=== PATIENT | female | born 1985 | race African-American/Black ===

== ENCOUNTER 2018-12-26 17:04 | Outpatient (CLI) | payer BC ==
[~2018-12-26 17:04] MED LIST: FERR240T9 PO; PREN-39 PO
--- NOTE | 2018-12-27 00:23 | PN ---
Triage Information Date/Time Late entry note for exam done for December 26, 2018 Reason for visit: Uterine contractions Weeks of Gestation 38 weeks and 5 days /Para 3 para 1 Diabetes: none Hypertention: none Additional information 33-year-old with IUP at 38 weeks and 5 days presented complaint nausea and and cramping, rule out labor. She denies any leaking of fluid, vaginal bleeding decreased movement. care with Dr. Jose Perez She denies any complication during her course Objective Heart Rate: 130's Heart Rate Comments Category 1. One episode of variable with rapid recovery noted, reassuring Results/Medications Imaging Results PROCEDURE: US OB biophysical profile. CLINICAL INDICATION: decreased movements, TECHNIQUE: Multiple sonographic images of the pelvis were obtained. The images were reviewed on a PACS workstation. COMPARISON: No prior studies are available for comparison. FINDINGS: There is a single live intrauterine gestation. Cardiac activity is present with 140 beats per minute. There is a vertex presentation. The placenta is fundal. There is no evidence of placental abruption. There is a normal amount of amniotic fluid with an HUGO = 13 cm. Biophysical profile: movement 2/2 tone 2/2. breathing 2/2 HUGO 2/2 Total 88 RPTAT: AA . IMPRESSION: Normal biophysical profile. . Disposition: Discharge Assessment/Plan IUP at 38 weeks and 5 days Cramping, nausea, rule out labor No evidence of labor. Cervical exam did not show any changes during observation of 4 5 hours testing overall reassuring Patient was given strict labor precautions and kick count Follow-up in triage tomorrow after 24 hours or sooner if she has any leaking of fluid increase cramps or any other concerns Adequate hydration discussed CHANI MCCLURE MD Dec 27, 2018 00:23
--- NOTE | 2018-12-27 06:12 | TRIAGE ---
OB Triage Datetime Report Generated by CPN: 12/27/2018 06:12 Datetime: 12/26/2018 23:00 Stage of : OB Triage Labor Evaluation Frequency: x5 in 1 hr Monitor Mode: External Duration (sec)2399: 50-120 Pattern: Normal: <= 5 Contractions in 10 Minutes Resting Tone [place]: Relaxed Heart Rate FHR Baseline Rate: 135 Monitor Mode: External US Variability: Moderate 6-25 bpm Accelerations: 15X15 Decelerations: None Category: Category I Datetime: 12/26/2018 22:00 Stage of : OB Triage Labor Evaluation Frequency: x8 in 1 hr Monitor Mode: External Duration (sec)2399: 50-120 Pattern: Normal: <= 5 Contractions in 10 Minutes Resting Tone [place]: Relaxed Heart Rate FHR Baseline Rate: 135 Monitor Mode: External US Variability: Moderate 6-25 bpm Accelerations: 15X15 Decelerations: None Category: Category I Datetime: 12/26/2018 20:14 Stage of : OB Triage Datetime: 12/26/2018 20:11 Vaginal Exam Dilatation (cms): 1.0 Effacement (%): 50 Station: -2 Exam By: Vazquez SCHMIDT Membrane Status: Intact Vaginal Bleeding: None Cervix, Consistency: Soft Cervix, Position: Midposition Datetime: 12/26/2018 20:00 Stage of : OB Triage Labor Evaluation Frequency: x7 in 1 hr Labor Evaluation Frequency: x12 in 1 hr Monitor Mode: External Duration (sec)2399: 50-120 Pattern: Normal: <= 5 Contractions in 10 Minutes Resting Tone [place]: Relaxed Heart Rate FHR Baseline Rate: 135 Heart Rate FHR Baseline Rate: 140 Monitor Mode: External US Variability: Moderate 6-25 bpm Accelerations: 15X15 Decelerations: None Category: Category I Datetime: 12/26/2018 19:15 Pain Assessment Pain Scale: 4 Pain Presence: Intermittent Pain Type: Pressure Pain Location: Abdomen Datetime: 12/26/2018 17:36 Stage of : OB Triage Datetime: 12/26/2018 17:29 Stage of : OB Triage Datetime: 12/26/2018 17:10 Stage of : OB Triage Assessment Type: Triage EGA: 38.5 Maternal Assessment Level of Consciousness: Fully Conscious DTR's/Clonus: DTRs 2+; No Clonus Headache: Denies Blurred Vision: No Respiratory Effort: Unlabored; Regular Rhythm; Equal Expansion Breath Sounds, Left: Clear and Equal Breath Sounds, Right: Clear and Equal Nausea/Vomiting: Denies RUQ Epigastric Pain: Denies Facial Edema: None Temperature Route: Axillary Fall Risk Assessment History of Falling: (0) No Secondary Diagnosis: (0) No Ambulatory Aid: (0) Bedrest/Nurse Assist IV Therapy: (0) No Gait: (0) Normal/Bedrest/Immobile Mental Status: (0) Oriented to Own Ability Fall Score: 0 Fall Risk Score Definition: No Risk: No action required Labor Evaluation Frequency: 0 Monitor Mode: External Pattern: Normal: <= 5 Contractions in 10 Minutes Resting Tone [place]: Relaxed Interventions: Sterile Vaginal Exam Heart Rate FHR Baseline Rate: 145 Monitor Mode: External US Variability: Moderate 6-25 bpm Accelerations: 10X10 Decelerations: None Category: Category I Pain Assessment Pain Scale: 6 Pain Presence: Intermittent Pain Type: Cramping; Contraction Pain Location: Abdomen; Perineum Pain Goal: 3 Pain Relief Measures: Comfort Measures Vaginal Exam Dilatation (cms): 1.0 Effacement (%): 50 Station: -2 Exam By: s bharat Membrane Status: Intact Datetime: 12/26/2018 17:09 Time of Arrival: 12/26/2018 16:47 Arrived By: Ambulatory Arrived From: Home Chief Complaint: c/o nausea, cramping, denies bleeding, or leaking. uc's q 10-15 Movement: Decreased Contractions: Irregular Rupture of Membranes: Denies Vaginal Bleeding: None Vaginal Discharge: Present Recent Sexual Intercouse: Denies Abdominal Trauma: Not Applicable Patient Complaints: Cramping Time Provider Notified: 12/27/2018 17:36 Provider Notified: Dr. Perez Initial Plan: monitor, ve
== END 2018-12-26 23:10 | disposition home or self-care (01) ==
LOC: OBT 17:04 → L-D 17:07 → OBT 23:10
PROVIDERS: ATTEND Obstetrics & Gynecology
DX: O62.9 Abnormality of forces of labor, unspecified (principal); Z3A.38 38 weeks gestation of pregnancy
CPT/HCPCS: 76818; G0463

== ENCOUNTER 2018-12-27 20:26 | Outpatient (CLI) | payer BC ==
[~2018-12-27] VITALS: Ht 177.8 cm; Wt 88.4 kg
[2018-12-27 20:51] VITALS: BP 117/65; PULSE 82; RESP 16
--- NOTE | 2018-12-27 22:17 | TRIAGE ---
OB Triage Datetime Report Generated by CPN: 12/27/2018 22:17 Datetime: 12/27/2018 21:28 Stage of : OB Triage Datetime: 12/27/2018 21:00 Stage of : OB Triage Quality: Mild Pattern: Normal: <= 5 Contractions in 10 Minutes Resting Tone [place]: Relaxed Heart Rate FHR Baseline Rate: 150 Monitor Mode: External US FHR Baseline Changes: No Baseline Change Variability: Moderate 6-25 bpm Accelerations: 15X15 Decelerations: None Category: Category I Pain Assessment Pain Scale: 0 Pain Presence: None/Denies Pain Type: N/A Datetime: 12/27/2018 20:31 Stage of : OB Triage Maternal Assessment Level of Consciousness: Fully Conscious Headache: Denies Blurred Vision: No Respiratory Effort: Unlabored Nausea/Vomiting: Denies RUQ Epigastric Pain: Denies Facial Edema: None Labor Evaluation Frequency: placed Monitor Mode: External Resting Tone [place]: Relaxed Monitor Mode: External US Comments: FHT 160 Datetime: 12/26/2018 17:10 Time of Arrival: 12/27/2018 20:21 EGA: 38.6 Arrived By: Ambulatory Arrived From: Home Chief Complaint: in OB triage for follow-up NST Movement: Present Contractions: Denies/Absent Rupture of Membranes: Denies Vaginal Bleeding: None Vaginal Discharge: Denies Recent Sexual Intercouse: Denies Abdominal Trauma: Not Applicable Patient Complaints: None Time Provider Notified: 12/27/2018 21:00 Provider Notified: Dr Perez Initial Plan: NST Fall Risk Assessment Fall Score: 0 Fall Risk Score Definition: No Risk: No action required
--- NOTE | 2018-12-28 05:02 | PN ---
Triage Information Date/Time 12/27/18 Reason for visit: f/u NST Weeks of Gestation 39w /Para Additional information last night came with uc which was more intense than today and VE /-2 Objective Vital Signs Date Temp Pulse Resp B/P (MAP) Pulse Ox O2 O2 Flow FiO2 Time Delivery Rate 12/27/18 98.2 82 16 117/65 Room Air 20:51 (82) Heart Rate: 140's Heart Rate Comments CAT I tracing Contractions: None Disposition: Discharge Assessment/Plan A IUP 39w NIL P discharge home with routine labor instructions RTH prn MANUEL FREED MD Dec 28, 2018 05:00
== END 2018-12-27 21:40 | disposition home or self-care (01) ==
LOC: OBT 20:26 → L-D 20:27 → OBT 21:40
PROVIDERS: ATTEND Obstetrics & Gynecology
DX: O62.9 Abnormality of forces of labor, unspecified (principal); Z3A.39 39 weeks gestation of pregnancy
CPT/HCPCS: G0463

== ENCOUNTER 2019-01-01 20:22 | Inpatient (IN) | payer BC ==
[~2019-01-01] VITALS: Ht 177.8 cm; Wt 88.9 kg
[2019-01-01 21:29] VITALS: BP 128/65; PULSE 72; RESP 18; Ht 177.8 cm; Wt 88.9 kg
[2019-01-01] MEDS ORDERED: LACTATED RINGER'S 1,000 ML IV PRN (23:47)
[2019-01-02] MEDS ORDERED: METHYLERGONOVINE 0.2 MG INJ IM PRN
[2019-01-02] MEDS ORDERED: IBUPROFEN 600 MG TAB PO PRN
[2019-01-02] MEDS ORDERED: MISOPROSTOL 200 MCG TAB PR PRN
[2019-01-02] MEDS ORDERED: OXYTOCIN 30 UNITS/LR 500 ML IV SCH ×2
[2019-01-02] MEDS ORDERED: CARBOPROST 250 MCG INJ IM PRN
[2019-01-02] MEDS ORDERED: OXYTOCIN 30 UNITS/LR 500 ML IV PRN
[2019-01-02] MEDS ORDERED: BUTORPHANOL 2 MG INJ IV PRN
[2019-01-02] MEDS ORDERED: LIDOCAINE 1% (MPF) 30 ML INJ INJ PRN
[2019-01-02] MEDS: LACTATED RINGER'S 1,000 ML IV SCH ×5 (00:51→20:47)
--- NOTE | 2019-01-02 01:29 | PREAC ---
Date/Time of Note Date/Time of Note DATE: 01/02/19 TIME: Anesthesia Eval and Record Evaluation Time Pre-Procedure Interview DATE: 01/02/19 TIME: : Age 33 Sex female NPO: Other Preoperative diagnosis labor pain Planned procedure epidural Past Medical History Past Medical History: None Surgery & Anesthesia Issues No known issue Meds Anticoagulation: No Beta Yesi within 24 hr: No Reason Beta Yesi not given: Pt. not on B-Yesi Reported Medications Ferrous Gluconate (Iron) 1 Tab Tablet, 1 TAB PO BID 02/06/15 Vits W-Ca,Fe,Fa(<1MG) ( Vitamins) 1 Tab Tablet, 1 TAB PO DAILY 02/06/15 Current Medications Lactated Ringer's 1,000 ml @ 125 mls/hr Q8H IV Last administered on 01/02/19at 00:51; Admin Dose 125 MLS/HR; Start 01/01/19 at 23:47 Butorphanol Tartrate (Stadol) 2 mg Q2H PRN IV .PAIN; Start 01/02/19 at 00:00 Lidocaine (Xylocaine 1% (Mpf)) 30 ml ONCE PRN INJ .EPISIOTOMY; Start 01/02/19 at 00:00 Oxytocin/Lactated Ringer's 500 ml @ 500 mls/hr ONCE POST IV ; Start 01/02/19 at 00:00 Oxytocin/Lactated Ringer's 500 ml @ 125 mls/hr POST IV ; Start 01/02/19 at 00:00 Ibuprofen (Motrin) 600 mg ONCE PRN PO .PAIN 1-5; Start 01/02/19 at 00:00 Lactated Ringer's 1,000 ml @ 2,000 mls/hr Q30M PRN IV .ANESTHESIA; Start 01/01/19 at 23:47 Oxytocin/Lactated Ringer's 500 ml @ 0 mls/hr ONCE PRN IV .VAGINAL BLEEDING; Start 01/02/19 at 00:00 Methylergonovine Maleate (Methergine) 0.2 mg ONCE PRN IM .VAGINAL BLEEDING; Start 01/02/19 at 00:00 Carboprost Tromethamine (Hemabate) 250 mcg ONCE PRN IM .VAGINAL BLEEDING; Start 01/02/19 at 00:00 Misoprostol (Cytotec) 1,000 mcg ONCE PRN PA .VAGINAL BLEEDING; Start 01/02/19 at 00:00 Meds reviewed: Yes Allergies Coded Allergies: No Known Allergies (Verified Allergy, Unknown, 01/01/19) Allergies Reviewed: Yes Labs/Studies Labs Reviewed: Reviewed by anesthesiologist test: N/A Pre-procedure Exam Last vitals Vital Signs Date Temp Pulse Resp B/P (MAP) Pulse Ox O2 O2 Flow FiO2 Time Delivery Rate 01/01/19 99.1 72 18 128/65 Room Air 21:29 (86) Airway: Adequate mouth opening, Adequate thyromental dist Mallampati: Mallampati II Teeth: Normal Lung: Normal Heart: Normal ASA Physical Status ASA physical status: 2 Emergency: None Pre-operative Attestations Prior to commencing anesthesia and surgery, the patient was re-evaluated, there was verification of: *The patient's identity *The results of appropriate recent lab work and preoperative vital signs *The above evaluation not changing prior to induction *Anesthetic plan, risk benefits, alternative and complications discussed with patient/family; questions answered; patient/family understands, accepts and wishes to proceed. FAZAL EMANUEL DO Jan 02, 2019 01:29
[2019-01-02] MEDS ORDERED: DIPHENHYDRAMINE 50 MG INJ IV PRN (01:30)
[2019-01-02] MEDS ORDERED: NALOXONE (0.4 MG/ML) INJ IV PRN (01:30)
[2019-01-02] MEDS ORDERED: ONDANSETRON 4 MG INJ IV PRN (01:30)
[2019-01-02] MEDS ORDERED: FENTAnyl 2MCG/ML-ROPIV 0.2% 100 ML ONE (01:33)
--- NOTE | 2019-01-02 03:39 | HP ---
DATE OF ADMISSION: 01/01/2019 HISTORY OF PRESENT ILLNESS: Ms. Darnell Meadows is a 33-year-old 3, para 1, EDC 01/04/2019 in trauterine at 39 weeks and 4 days gestational age, admitted in labor. She reports of uteri ne contractions since 6:00 last night. She denies any vaginal bleeding or discharge. Her c are took place with Dr. Resendiz. PAST MEDICAL HISTORY: None. MEDICATIONS: vitamins. PAST SURGICAL HISTORY: None. OBSTETRICAL HISTORY: Vaginal delivery x1, x1 termination of . GYNECOLOGIC HISTORY: Twelve, regular 3 to 4 days. Denies any sexually transmitted infection. Sexua lly active with 1 partner. SOCIAL HISTORY: Denies any smoking, drugs or alcohol. FAMILY HISTORY: None. REVIEW OF SYSTEMS: All within normal except history of present illness. PHYSICAL EXAMINATION: HEENT: Within normal. LUNGS: CTA bilateral. CARDIOVASCULAR: S1, S2, regular rhythm. ABDOMEN: Gravid, nontender. Negative CVA bilateral. EXTREMITIES: Negative calf tenderness. PELVIC: Vaginal exam 2 to 3 cm, 80%, -2, intact. heart tracing category 1. Tocometer regular contractions. ASSESSMENT: Intrauterine at term in labor. PLAN: Anticipate vaginal delivery. Dictated By: MARY ROSS/UBALDO Conf#: [id number] DID#: [id number]
[2019-01-02] MEDS: FENTAnyl 2MCG/ML-ROPIV 0.2% 100 ML BAG EPI SCH ×3 (05:06→18:24)
[2019-01-02] MEDS: OXYTOCIN 30 UNITS/LR 500 ML IV SCH (12:51)
[2019-01-03] MEDS: FENTAnyl 2MCG/ML-ROPIV 0.2% 100 ML BAG EPI SCH ×4 (01:28→23:34)
[2019-01-03] MEDS: LACTATED RINGER'S 1,000 ML IV SCH ×3 (04:54→20:07)
[2019-01-03] MEDS: OXYTOCIN 30 UNITS/LR 500 ML IV SCH (14:04)
--- NOTE | 2019-01-03 16:59 | QN ---
Documentation Comment progress note labor and delivery patient seen and evaluated no complaints vs stable afebrile ab gravid nt extremity no edema no calf tenderness ve 3-4/80/-2 arom clear fhr cat 1 toco irregular a/ iup at term in labor currently on Pitocin for argumentation efw approx 4,000 grams p/ discussed with patient increase risk of shoulder dystocia, patient desires to proceed with vaginal delivery iupc anticipated vaginal deliver risk of pitocin explained to patient MARY STACK MD Jan 03, 2019 16:59
[2019-01-04] MEDS ORDERED: MINERAL OIL LIGHT 10 ML VIAL TOP ONE
[2019-01-04] MEDS ORDERED: OXYTOCIN 30 UNITS/LR 500 ML IV SCH (00:23)
--- NOTE | 2019-01-04 00:23 | LDN ---
Date/Time of Note Date/Time of Note DATE: 01/04/19 TIME: 00:21 Delivery Summary Weeks of Gestation 40 Placenta Delivered: Spontaneously Meconium: none Episiotomy: No Estimated blood loss: 200 Sponge & Needle done & correct: Yes All needle counts correct: Yes Any foreign bodies felt in the: No Delivery Information Sex Infant Sex: male Apgars 1 Minute: 9 5 Minute: 9 Suctioning Nose & mouth suctioned at yennifer: No Delee suction performed: No Umbilical Cord Umbilical cord with: 3 Vessels Cord presentations: no nuchal cord Cord Blood was obtained: Yes MARY STACK MD Jan 04, 2019 00:23
[2019-01-04] MEDS ORDERED: MISOPROSTOL 200 MCG TAB PR PRN (00:30)
[2019-01-04] MEDS ORDERED: ONDANSETRON 4 MG INJ IV PRN (00:30)
[2019-01-04] MEDS ORDERED: WITCH HAZEL/GLYCERIN PAD PR PRN (00:30)
[2019-01-04] MEDS ORDERED: SENNA/DOCUSATE NA (8.6MG/50MG) TAB PO PRN (00:30)
[2019-01-04] MEDS ORDERED: OXYTOCIN 30 UNITS/LR 500 ML IV PRN (00:30)
[2019-01-04] MEDS ORDERED: OXYCODONE/ASPIRIN (4.88/325) TAB PO PRN ×2 (00:30)
[2019-01-04] MEDS ORDERED: NACL 0.9% 3 ML SYG IV SCH (00:30)
[2019-01-04] MEDS ORDERED: BENZOCAINE 20% 56 ML SPRAY TOP PRN (00:30)
[2019-01-04] MEDS ORDERED: METHYLERGONOVINE 0.2 MG INJ IM PRN (00:30)
[2019-01-04] MEDS ORDERED: CARBOPROST 250 MCG INJ IM PRN (00:30)
[2019-01-04 04:40] VITALS: BP 131/59; RESP 19
[2019-01-04] MEDS: IBUPROFEN 600 MG TAB PO SCH ×3 (05:55→17:53)
[2019-01-04 08:30] VITALS: BP 116/56; PULSE 66; RESP 18
[2019-01-04] MEDS ORDERED: SENNA/DOCUSATE NA (8.6MG/50MG) TAB PO SCH (09:00)
[2019-01-04 16:15] VITALS: BP 117/62; PULSE 87; RESP 18
[2019-01-04 20:05] VITALS: BP 104/66; PULSE 75; RESP 18
[2019-01-05] MEDS: IBUPROFEN 600 MG TAB PO SCH ×4 (00:24→18:08)
[2019-01-05 03:56] VITALS: BP 118/58; PULSE 72; RESP 17
[2019-01-05 05:28] VITALS: BP 120/66; PULSE 57; RESP 19
[2019-01-05 08:00] VITALS: BP 116/72; PULSE 66; RESP 18
[2019-01-05 15:00] VITALS: BP 115/65; PULSE 70; RESP 18
--- NOTE | 2019-01-05 15:25 | QN ---
Documentation Comment had B.M vss afebrile fundus firm lochiamod calf neg for tenderness repeat HnH 9.9/29.2 A s/p #1 P d/s home in am MANUEL FREED MD Jan 05, 2019 15:25
[2019-01-05 20:00] VITALS: BP 110/59; PULSE 84; RESP 18
[2019-01-06 04:20] VITALS: BP 127/70; PULSE 68; RESP 18
[2019-01-06] MEDS: IBUPROFEN 600 MG TAB PO SCH ×2 (06:00)
[2019-01-06 07:40] VITALS: BP 127/77; PULSE 64; RESP 16
--- NOTE | 2019-01-06 10:37 | DS ---
Date/Time of Note Date/Time of Note DATE: 01/06/19 TIME: 10:37 Obstetrical Discharge Record Final Diagnosis Final Diagnosis: Term delivered Vaginal Delivery Obstetrical Delivery: Spontaneous Condition on Discharge Physical Assessment Voiding: Yes Fundus: Firm Calf Tenderness: No Patient Condition: Good MYRA LOW Jan 06, 2019 10:37
== END 2019-01-06 11:59 | disposition home or self-care (01) | DRG 807 ==
LOC: L-D 20:22 → OBT 20:22 → L-D 20:25 → OBT 23:45 → L-D 01-02 09:42 → PP1 01-04 04:17
PROVIDERS: ADMIT Obstetrics & Gynecology; ATTEND Obstetrics & Gynecology
PROC: 10E0XZZ Delivery of Products of Conception, External Approach (ICD-10-PCS; principal; 2019-01-04)
DX: O80 Encounter for full-term uncomplicated delivery (principal); Z37.0 Single live birth; Z3A.40 40 weeks gestation of pregnancy
CPT/HCPCS: 62319; 76815; 76818; 80053; 81001; 84560; 85014; 85018; 85025; 85384; 85610; 85730; 86592; 86850; 86900; 86901; 87340; 90686; G0463; J2210; J2590; J3010; J7120